=== PATIENT | female | born 1935 | race Caucasian/White ===

== ENCOUNTER → 2017-05-27 06:55 | Emergency (ER) | payer MEDICARE, OTHER ==
[~2017-05-27 06:55] MED LIST: Ketorolac INJ* 30 MG/ML 1 ML VIAL IV ONE; Morphine INJ* 4 MG/ML 1 ML SYRINGE IV ONE; NS 0.9% 1000 ML* 1,000 ML IV ONE; Ondansetron INJ* 2 MG/ML VIAL IV ONE; Potassium Chlor TAB* 20 MEQ TAB.ER PO ONE; oxyCODONE/Acetamin 5/325 MG* TAB PO ONE
[2017-05-27 08:24] LABS: Hematocrit 35 % (35-47); Hemoglobin 11.9 g/dl (12.0-16.0); Mean Corpuscular HGB Conc 34 g/dl (31-36); Mean Corpuscular Hemoglobin 32 pg (27-31); Mean Corpuscular Volume 92 fL (80-97); Mean Platelet Volume 7 um3 (7.4-10.4); Red Blood Count 3.77 10^6/ul (4.0-5.4); Red Cell Distribution Width 13 % (10.5-15); White Blood Count 10.6 10^3/ul (3.5-10.8)
[2017-05-27 08:48] LABS: Albumin 4.1 g/dL (3.2-5.2); BUN/Creatinine Ratio 20.9 (8-20); C Reactive Protein 10.31 mg/L (< 5.00); Calcium 9.1 mg/dL (8.6-10.3); EGFR African American 109.2 (>60); EGFR Non-African American 84.9 (>60); Globulin 3.1 g/dL (2-4); Potassium 3.1 mmol/L (3.5-5.0); Total Bilirubin 0.5 mg/dL (0.2-1.0); Total Protein 7.2 g/dL (6.4-8.9)
--- NOTE | 2017-05-27 09:02 | RAD ---
Indication: Back pain, left flank pain. CT of the abdomen and pelvis was performed without IV contrast. Sagittal and coronal reconstructed images were obtained. The lung bases demonstrate no pleural fluid. The changes are noted bilaterally. Heart demonstrates no pericardial effusion. Liver is normal in size. No focal lesions or intrahepatic duct dictation. The gallbladder demonstrates no calcified gallstones. No pericholecystic fluid or wall thickening. Spleen is normal in size. No adrenal lesions are noted. The kidneys demonstrate no hydronephrosis. No evidence of obstructive uropathy is noted. Atherosclerotic aorta is noted. No dilated loops of bowel are noted. No retroperitoneal lymphadenopathy is noted. CT of the pelvis demonstrates uterus and ovaries to be unremarkable. No dilated loops of bowel are noted. No hernias are noted. No pelvic adenopathy is definitively identified. IMPRESSION: NO EVIDENCE OF OBSTRUCTIVE UROPATHY IS NOTED.
--- NOTE | 2017-05-27 09:09 | RAD ---
Indication: Back pain. CT of the lumbar spine was obtained in the axial plane. Sagittal and coronal reconstructed images were obtained. The vertebral bodies appear normal in height. No evidence of compression fracture is noted. The spinous processes are unremarkable. Transverse processes There is dextroscoliosis of the lumbar spine with convexity centered at L2-L3. Degenerative disc disease is noted at multiple levels with multiple facet arthropathy. Pelvic ring is intact. The sacrum is grossly unremarkable. IMPRESSION: Multilevel degenerative disc disease is noted. No fracture of the lumbar spine is noted.
[2017-05-27 09:15] LABS: Erythrocyte Sed Rate 28 mm/Hr (0-40)
[2017-05-27 12:01] VITALS: BP 124/47
[2017-05-27 15:01] LABS: Urine Bacteria 1+ (Absent); Urine Bilirubin Negative (Negative); Urine Glucose Negative (Negative); Urine Nitrite Negative (Negative)
--- NOTE | 2017-05-27 15:43 | ED ---
Norris Vieyra Angela, scribed for Troy Valdivia MD on 05/27/17 at 0744 . Back Pain - HPI Summary HPI Summary: This pt is a 81 y/o female BIBA from [facility] [place] presenting to [facility] c/o acute on chronic back pain since yesterday. Pt reports last night she had excruciating pain and it is located on the lower left side. Pt's pain radiates to her abd and has nausea with severe pain. She notes difficulty ambulating secondary to pain. she states there is pain with just sitting down and with moving her legs up. Pt has not taken any pain medications. Pt denies LE numbness , weakness or pain, hip pain, urinary symptoms, bowel or urinary incontinence. Pt denies PMHx of diabetes, kidney stones and is not anticoagulated. Pt drinks alcohol daily, wine. - History of Current Complaint Chief Complaint: EDBackInjuryPain Stated Complaint: BACK PAIN Time Seen by Provider: 05/27/17 07:34 Hx Obtained From: Patient Onset/Duration: Gradual Onset Timing: Constant Back Pain Location: Is Discrete @ - left lower back Pain Intensity: 6 Pain Scale Used: 0-10 Numeric Aggravating Symptom(s): Movement, Walking Alleviating Symptom(s): Nothing Associated Signs And Symptoms: Positive: Other - nausea. Negative: Swelling, Weakness, Numbness, Tingling, Bladder Incontinence, Bowel Incontinence - Allergies/Home Medications Allergies/Adverse Reactions: Allergies Allergy/AdvReac Type Severity Reaction Status Date / Time No Known Allergies Allergy Verified 05/27/17 07:13 PMH/Surg Hx/FS Hx/Imm Hx Cardiovascular History: Reports: Hx Hypertension GI History: Reports: Hx Gastroesophageal Reflux Disease Neurological History: Denies: Hx Headaches - Cancer History Hx Chemotherapy: No Hx Radiation Therapy: No Infectious Disease History: No Infectious Disease History: Denies: Traveled Outside the [place] in Last 30 Days - Family History Known Family History: Negative: Seizure Disorder - Social History Alcohol Use: Daily Alcohol Amount: a glass of wine Substance Use Type: Reports: None Smoking Status (MU): Never Smoked Tobacco Review of Systems Negative: Fever, Chills Eyes: Negative ENT: Negative Negative: Chest Pain Negative: Shortness Of Breath Positive: Abdominal Pain, Nausea Genitourinary: Negative - bowel or urinary Positive: Other - back pain Skin: Negative Negative: Weakness, Paresthesia, Numbness All Other Systems Reviewed And Are Negative: Yes Physical Exam - Summary Physical Exam Summary: The patient is well-nourished in mild acute distress. The skin is warm and dry and skin color reflects adequate perfusion. There is good skin turgor. HEENT: The head is normocephalic and atraumatic. The pupils are equal and reactive. The conjunctivae are clear and without drainage. Nares are patent and without drainage. Mouth reveals moist mucous membranes and the throat is without erythema and exudate. The external ears are intact. The ear canals are patent and without drainage. The tympanic membranes are intact. Neck is supple with full range of motion and non-tender. Respiratory: Chest is non-tender. Lungs are clear to auscultation and breath sounds are symmetrical and equal. Cardiovascular: Hear is regular rate and rhythm. There is no murmur or rub auscultated. There is no peripheral edema and pulses are symmetrical and equal. There are good distal pulses. Abdomen: The abdomen is soft and there is no reproducible abd pain. No rebound or guarding. There are normal bowel sounds heard in all four quadrants and there is no organomegaly palpated. Musculoskeletal: There is no tenderness in the spinal, lumbar or thoracic processes. Extremities are non-tender with full range of motion. There is good capillary refill. There is no peripheral edema or calf tenderness elicited. There is PSIS tenderness. There is negative straight leg raise. Neurological: Patient is alert and oriented to person, place and time. The patient has symmetrical motor strength in all four extremities. Motor strength is 5 out of 5 in the lower extremities. Deep tendon reflexes are symmetrical and equal in all four extremities. Psychiatric: The patient has an appropriate affect and does not exhibit any anxiety or depression. Triage Information Reviewed: Yes Vital Signs On Initial Exam: Initial Vitals Temp Pulse Resp BP Pulse Ox 99.3 F 67 16 132/54 93 05/27/17 07:13 05/27/17 07:13 05/27/17 07:13 05/27/17 07:13 05/27/17 07:13 Vital Signs Reviewed: Yes Diagnostics - Vital Signs Vital Signs Temp Pulse Resp BP Pulse Ox 05/27/17 07:13 99.3 F 67 16 132/54 93 - Laboratory Lab Results: Lab Results 09/06/17 09/06/17 09/06/17 Range/Units 08:11 08:11 08:11 WBC 10.6 (3.5-10.8) 10^3/ul RBC 3.77 L (4.0-5.4) 10^6/ul Hgb 11.9 L (12.0-16.0) g/dl Hct 35 (35-47) % MCV 92 (80-97) fL MCH 32 H (27-31) pg MCHC 34 (31-36) g/dl RDW 13 (10.5-15) % Plt Count 278 (150-450) 10^3/ul MPV 7 L (7.4-10.4) um3 Neut % (Auto) 84.0 H (38-83) % Lymph % (Auto) 6.3 L (25-47) % [place] % (Auto) 9.3 H (1-9) % Eos % (Auto) 0.1 (0-6) % Baso % (Auto) 0.3 (0-2) % Absolute Neuts (auto) 8.9 H (1.5-7.7) 10^3/ul Absolute Lymphs (auto) 0.7 L (1.0-4.8) 10^3/ul Absolute Monos (auto) 1.0 H (0-0.8) 10^3/ul Absolute Eos (auto) 0 (0-0.6) 10^3/ul Absolute Basos (auto) 0 (0-0.2) 10^3/ul Absolute Nucleated RBC 0 10^3/ul Nucleated RBC % 0 ESR 28 (0-40) mm/Hr Sodium 132 L (133-145) mmol/L Potassium 3.1 L (3.5-5.0) mmol/L Chloride 94 L (101-111) mmol/L Carbon Dioxide 28 (22-32) mmol/L Anion Gap 10 (2-11) mmol/L BUN 14 (6-24) mg/dL Creatinine 0.67 (0.51-0.95) mg/dL Est GFR ( Amer) 109.2 (>60) Est GFR (Non-Af Amer) 84.9 (>60) BUN/Creatinine Ratio 20.9 H (8-20) Glucose 118 H (70-100) mg/dL Lactic Acid 1.4 (0.5-2.0) mmol/L Calcium 9.1 (8.6-10.3) mg/dL Total Bilirubin 0.50 (0.2-1.0) mg/dL AST 15 (13-39) U/L ALT 12 (7-52) U/L Alkaline Phosphatase 51 (34-104) U/L C-Reactive Protein 10.31 H (< 5.00) mg/L Total Protein 7.2 (6.4-8.9) g/dL Albumin 4.1 (3.2-5.2) g/dL Globulin 3.1 (2-4) g/dL Albumin/Globulin Ratio 1.3 (1-3) Urine Color Urine Appearance Urine pH (5-9) Ur Specific [place] (1.010-1.030) Urine Protein (Negative) Urine Ketones (Negative) Urine Blood (Negative) Urine Nitrate (Negative) Urine Bilirubin (Negative) Urine Urobilinogen (Negative) Ur Leukocyte Esterase (Negative) Urine WBC (Auto) (Absent) Urine RBC (Auto) (Absent) Ur Squamous Epith Cells (Absent) Urine Bacteria (Absent) Hyaline Casts (Absent) Urine Glucose (Negative) 05/27/17 Range/Units 13:30 WBC (3.5-10.8) 10^3/ul RBC (4.0-5.4) 10^6/ul Hgb (12.0-16.0) g/dl Hct (35-47) % MCV (80-97) fL MCH (27-31) pg MCHC (31-36) g/dl RDW (10.5-15) % Plt Count (150-450) 10^3/ul MPV (7.4-10.4) um3 Neut % (Auto) (38-83) % Lymph % (Auto) (25-47) % [place] % (Auto) (1-9) % Eos % (Auto) (0-6) % Baso % (Auto) (0-2) % Absolute Neuts (auto) (1.5-7.7) 10^3/ul Absolute Lymphs (auto) (1.0-4.8) 10^3/ul Absolute Monos (auto) (0-0.8) 10^3/ul Absolute Eos (auto) (0-0.6) 10^3/ul Absolute Basos (auto) (0-0.2) 10^3/ul Absolute Nucleated RBC 10^3/ul Nucleated RBC % ESR (0-40) mm/Hr Sodium (133-145) mmol/L Potassium (3.5-5.0) mmol/L Chloride (101-111) mmol/L Carbon Dioxide (22-32) mmol/L Anion Gap (2-11) mmol/L BUN (6-24) mg/dL Creatinine (0.51-0.95) mg/dL Est GFR ( Amer) (>60) Est GFR (Non-Af Amer) (>60) BUN/Creatinine Ratio (8-20) Glucose (70-100) mg/dL Lactic Acid (0.5-2.0) mmol/L Calcium (8.6-10.3) mg/dL Total Bilirubin (0.2-1.0) mg/dL AST (13-39) U/L ALT (7-52) U/L Alkaline Phosphatase (34-104) U/L C-Reactive Protein (< 5.00) mg/L Total Protein (6.4-8.9) g/dL Albumin (3.2-5.2) g/dL Globulin (2-4) g/dL Albumin/Globulin Ratio (1-3) Urine Color Yellow Urine Appearance Cloudy Urine pH 6.0 (5-9) Ur Specific [place] 1.019 (1.010-1.030) Urine Protein 1+(30 mg/dl) H (Negative) Urine Ketones Trace H (Negative) Urine Blood Negative (Negative) Urine Nitrate Negative (Negative) Urine Bilirubin Negative (Negative) Urine Urobilinogen Negative (Negative) Ur Leukocyte Esterase Trace H (Negative) Urine WBC (Auto) 1+(6-10/hpf) H (Absent) Urine RBC (Auto) 3+(>10/hpf) H (Absent) Ur Squamous Epith Cells Present H (Absent) Urine Bacteria 1+ H (Absent) Hyaline Casts Present H (Absent) Urine Glucose Negative (Negative) Result Diagrams: 05/27/17 08:11 05/27/17 08:11 Lab Statement: Any lab studies that have been ordered have been reviewed, and results considered in the medical decision making process. - CT Abd/Pel CT CT Interpretation: No Acute Changes - IMPRESSION: No evidence of obstructive uropathy is noted. ED physician has reviewed this radiology report and agrees. CT Interpretation Completed By: Radiologist Spine Lumbar CT CT Interpretation: Positive (See Comments) - IMPRESSION: Multilevel degenerative disc disease is noted. No fracture of the lumbar spine is noted. ED physician has reviewed this radiology report and agrees. CT Interpretation Completed By: Radiologist Re-Evaluation - Re-Evaluation First Eval Re-Evaluation Time: 10:39 Comment: I reviewed the lab and CT results with the pt. We will try to ambulate the pt. Back Pain Course/Dx - Course Assessment/Plan: Labs, CT abd/pel, and lumbar spine CT were obtained. In the ED course, the pt was given toradol, morphine, zofran and IV fluids. Labs reveals potassium of 3.1. CT abd/pel shows no evidence of obstructive uropathy is noted. Lumbar spine CT reveals multilevel degenerative disc disease is noted. No fracture of the lumbar spine is noted. Pt lives in [facility] but requires a higher level of care due to her low back pain. She would like to speak to a delinquency prevention social worker for this. Pt will be discharged in stable condition. 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 pt was sent home on percocet and valium for her back pain. - Diagnoses Differential Diagnosis/HQI/PQRI: Positive: Herniated Disc, Renal Colic, Other - degenerative disc disesase Provider Diagnoses: Back pain, Degenerative disc disease Discharge - Discharge Plan Condition: Stable Disposition: HOME Discharge Disposition Comment: [facility] Prescriptions: Diazepam TAB(*) [Valium TAB(*)] 5 mg PO TID PRN #15 tab MDD 3 PRN Reason: muscle spasm oxyCODONE/Acetamin 5/325 MG* [Percocet 5/325 TAB*] 1 tab PO Q6H PRN #20 tab MDD 4 PRN Reason: pain Patient Education Materials: Back Pain (ED) Referrals: Funmilayo, [Primary Care Provider] - The documentation as recorded by the Norris stearns Angela accurately reflects the service I personally performed and the decisions made by me, Troy Valdivia MD.
== END | disposition home or self-care (01) ==
LOC: ED 06:55
DX: M51.36 Other intervertebral disc degeneration, lumbar region (principal); M54.5 Low back pain
CPT/HCPCS: 36415; 72131; 74176; 80053; 81003; 81015; 83605; 85025; 85652; 86140; 87086; 96374; 96375; 99282; A9270-GY; J1885; J2270; J2405